=== PATIENT | female | born 1955 | race Caucasian/White ===

== ENCOUNTER 2020-09-18 22:00 | Observation (INO) | payer MEDICARE, MEDICAID ==
[~2020-09-18] VITALS: Ht 165.1 cm; Wt 93.4 kg
[2020-09-18] MEDS ORDERED: HYDROmorphone 1 MG/ML, 1ML INJ ONE (22:26)
[2020-09-18] MEDS ORDERED: ALBUTEROL/IPRATROPIUM 2.5MG/0.5MG, 3 ML ONE (22:26)
[2020-09-18 22:30] LABS: BASOPHILS % (AUTO) 0 % (0-1); EOSINOPHILS % (AUTO) 5 % (1-7); LYMPHOCYTES % (AUTO) 37 % (22-44); MEAN CORPUSCULAR HEMOGLOBIN 30.1 pg (27.0-34.8); MEAN CORPUSCULAR HGB CONC 33.5 g/dL (32.4-35.8); MEAN PLATELET VOLUME 8.9 fL (7.4-10.4); MONOCYTES % (AUTO) 9 % (2-9); NEUTROPHILS % (AUTO) 49 % (42-75); PLATELET COUNT 148 x10^3/uL (130-400); RED BLOOD COUNT 4.61 x10^6/uL (3.82-5.3); RED CELL DISTRIBUTION WIDTH 13.3 % (9.6-15.2)
[2020-09-18] MEDS ORDERED: HYDROmorphone 1 MG/ML, 1ML INJ IV ONE (22:30)
[2020-09-18] MEDS ORDERED: SODIUM CHLORIDE FLUSH 10ML SYR IVF ONE (22:30)
[2020-09-18] MEDS ORDERED: ALBUTEROL/IPRATROPIUM 2.5MG/0.5MG, 3 ML NPPB ONE (22:30)
[2020-09-18] MEDS ORDERED: MORPHINE SULFATE 4 MG/ML, 1ML IVPush PRN (22:30)
[2020-09-18] MEDS ORDERED: PLEASE ENTER ALLERGIES MC SCH (22:30)
[2020-09-18 22:32] LABS: MD NO
[2020-09-18 22:43] LABS: ALANINE AMINOTRANSFERASE 33 U/L (12-78); ALBUMIN 3.3 g/dL (3.4-5.0); ANION GAP 5 mmol/L (5-15); CALCIUM 8.5 mg/dL (8.5-10.1); CHLORIDE 105 mmol/L (98-107); CREATININE 1.14 mg/dL (0.55-1.02)
[2020-09-18 22:45] LABS: ALKALINE PHOSPHATASE 88 U/L (45-117); BILIRUBIN,TOTAL 0.5 mg/dL (0.2-1.0); TOTAL PROTEIN 6.6 g/dL (6.4-8.2)
--- NOTE | 2020-09-18 22:48 | NUR ---
conrad from [facility] for back pain and bilat feet pain with increasing loss of sensation. pt states she has had 5 back surgeries. pt had glf secondary to pain and has wound on right forearm. pt can lift both legs with increasing pain, states L > R. pt has red/purple toes and bottoms of feet with pt states is not normal for her. pt able to stand and take small steps but it causes increasing pain.
[2020-09-18 22:54] LABS: MICROSCOPIC INDICATED
--- NOTE | 2020-09-18 22:56 | NUR ---
PT TO MRI
[2020-09-18] MEDS ORDERED: GADOTERATE 10 MMOL/20ML SYR ONE (23:15)
[2020-09-19] MEDS ORDERED: CEFTRIAXONE PMX 1GM/50ML 50 ML IVPB ONE (00:30)
[2020-09-19] MEDS ORDERED: AZITHROMYCIN 500 MG in SODIUM CHLORIDE 0.9% 250 ML IVPB ONE (00:30)
[2020-09-19] MEDS ORDERED: LEVOFLOXACIN/PMX 750MG/150ML 150 ML IVPB ONE (00:30)
[2020-09-19] MEDS ORDERED: CEFTRIAXONE PMX 1GM/50ML 50 ML ONE (00:39)
[2020-09-19] MEDS ORDERED: LEVOFLOXACIN/PMX 750MG/150ML 150 ML ONE (00:39)
--- NOTE | 2020-09-19 00:57 | NUR ---
PT GIVEN CHICKEN SANDWHICH AND WATER
--- NOTE | 2020-09-19 01:05 | NUR ---
report given to diana barone
[2020-09-19 01:34] VITALS: BP 109/70
[2020-09-19] MEDS ORDERED: LISI20TA21 PO (02:51)
[2020-09-19] MEDS ORDERED: ZOLP10TA PO (02:51)
[2020-09-19] MEDS ORDERED: HYDR1TAB53 PO (02:51)
[2020-09-19] MEDS ORDERED: CYCL10TA2 PO (02:51)
[2020-09-19 02:53] VITALS: BP 109/70
[2020-09-19] MEDS ORDERED: MELATONIN 5 MG TABLET PO PRN (03:00)
[2020-09-19] MEDS ORDERED: hydrALAzine 20 MG/ML, 1ML IVPush PRN (03:00)
[2020-09-19] MEDS ORDERED: ONDANSETRON 2MG/ML, 2ML IVPush PRN (03:00)
[2020-09-19] MEDS ORDERED: DOCUSATE 100 MG CAPSULE PO PRN (03:00)
[2020-09-19] MEDS ORDERED: morphine SULFATE 10 MG/ML, 1ML IVPush PRN (03:00)
[2020-09-19] MEDS ORDERED: CYCLOBENZAPRINE 10 MG TABLET PO PRN (03:00)
[2020-09-19] MEDS: HEPARIN 5,000 UNITS/ML, 1ML SQ SCH ×2 (03:12→11:00)
[2020-09-19] MEDS: HYDROcodone/APAP 5/325 TABLET PO PRN ×2 (03:12→08:09)
[2020-09-19 05:18] LABS: BASOPHILS % (AUTO) 2 % (0-1); EOSINOPHILS % (AUTO) 5 % (1-7); LYMPHOCYTES % (AUTO) 34 % (22-44); MEAN CORPUSCULAR HEMOGLOBIN 29.9 pg (27.0-34.8); MEAN CORPUSCULAR HGB CONC 33.2 g/dL (32.4-35.8); MEAN PLATELET VOLUME 8.9 fL (7.4-10.4); MONOCYTES % (AUTO) 9 % (2-9); NEUTROPHILS % (AUTO) 51 % (42-75); PLATELET COUNT 125 x10^3/uL (130-400); RED CELL DISTRIBUTION WIDTH 13.3 % (9.6-15.2)
[2020-09-19 05:19] LABS: MD NO
[2020-09-19 08:03] VITALS: BP 108/71
[2020-09-19] MEDS ORDERED: LISINOPRIL 20 MG TABLET PO SCH (09:00)
== END 2020-09-19 11:58 | disposition home or self-care (01) ==
LOC: ED 23:08 → EDIP 09-19 00:47 → INTOOBSV 09-19 00:47 → 4NW 09-19 01:22 → UNDODISIN 09-19 11:58
PROVIDERS: ADMIT Internal Medicine; ATTEND Family Medicine
DX: G57.93 Unspecified mononeuropathy of bilateral lower limbs (principal); J15.9 Unspecified bacterial pneumonia; J44.0 Chronic obstructive pulmonary disease with (acute) lower respiratory infection; J44.1 Chronic obstructive pulmonary disease with (acute) exacerbation; N17.9 Acute kidney failure, unspecified; E78.5 Hyperlipidemia, unspecified; F17.200 Nicotine dependence, unspecified, uncomplicated; G89.29 Other chronic pain; I10 Essential (primary) hypertension; M81.0 Age-related osteoporosis without current pathological fracture; Z88.6 Allergy status to analgesic agent; Z88.5 Allergy status to narcotic agent; Z88.0 Allergy status to penicillin; Z88.8 Allergy status to other drugs, medicaments and biological substances; Z79.899 Other long term (current) drug therapy; Z90.49 Acquired absence of other specified parts of digestive tract
CPT/HCPCS: 36415; 71045; 72158; 80053; 81001; 85025; 87040; 87077; 87086; 87186; 96365; 96366; 96367; 96372; 96375; 97161; 97165; 99285; A9575; G0378; J0456; J0696; J1170; J1644; J1956; J7050; 96374